=== PATIENT | female | born 1945 | race Caucasian/White ===

== ENCOUNTER 2019-11-06 13:16 | Emergency (ER) | payer MEDICARE, OTHER ==
--- NOTE | 2019-11-06 14:15 | EDM.PDOC ---
ED HPI GENERAL MEDICAL PROBLEM - General Stated Complaint: DIZZY Time Seen by Provider: 11/06/19 13:55 Source of Information: Reports: Patient History Limitations: Reports: No Limitations - History of Present Illness INITIAL COMMENTS - FREE TEXT/NARRATIVE: This 74 yo female patient reports to the ED with a right sided headache, intermittent dizziness and intermittent double vision. The patient reports she has had 3 similar episodes today. The patient reports her symptoms start with dizziness and double vision which ends with a right sided headache. The patient also reports she had several episodes of pain shooting down the right side of her neck and into her right shoulder. The patient reports she has been feeling "listless" and low energy over the weekend. The patient reports she has had similar episodes in the past (1 month ago). The patient reports she was seen in the [facility] and had numerous tests (cardiac and a head scan). At the conclusion of that visit, the patient was given Meclizine. The patient reports she took an ibuprofen (200 mg) at about noon for her headache with no resolution of her headache. The patient reports she currently has a right sided headache, but her dizziness and double vision is currently not present. Onset: Today Duration: Intermittent Location: Reports: Head (right sided headache), Face (double visitoin), Neck (right sided neck pain (gone at time of examination)), Upper Extremity, Right (shoulder ache (gone at time of examination)) Quality: Reports: Ache, Dull Severity: Moderate Improves with: Reports: None Worsens with: Reports: None Context: Reports: Other Associated Symptoms: Reports: Headaches Treatments [employer]: Reports: NSAIDS - Related Data Allergies Allergy/AdvReac Type Severity Reaction Status Date / Time nortriptyline Allergy Intermediate Rash Verified 11/06/19 13:42 pentosan polysulfate sodium Allergy Mild Other Verified 11/06/19 13:43 adhesive tape Allergy red Verified 11/06/19 13:46 amitriptyline Allergy Rash Verified 11/06/19 13:42 hydrocortisone Allergy Rash Verified 11/06/19 13:48 latex Allergy Rash Verified 11/06/19 13:44 neomycin Allergy Other Verified 11/06/19 13:47 polymyxin B Allergy Rash Verified 11/06/19 13:47 pravastatin Allergy Rash Verified 11/06/19 13:45 prednisone Allergy Rash Verified 11/06/19 13:44 Tricyclic Compounds Allergy Other Verified 11/06/19 13:46 Home Meds: Home Meds Calcium Carbonate/Vitamin D3 [Calcium 600 + Vit D Tablet] 1 cap PO ACBREAKFAST 11/06/19 [History] Celecoxib 200 mg PO 11/06/19 [History] Ibuprofen [Advil] 200 mg PO PRN 11/06/19 [History] Levothyroxine Sodium [Synthroid] 125 mcg PO DAILY 11/06/19 [History] Meclizine [Antivert] 12.5 mg PO TID 11/06/19 [History] Omeprazole 20 mg PO 11/06/19 [History] lisinopriL [Lisinopril] 10 mg PO 11/06/19 [History] ED ROS GENERAL - Review of Systems Review Of Systems: Comprehensive ROS is negative, except as noted in HPI. ED EXAM, GENERAL - Physical Exam Exam: See Below Exam Limited By: No Limitations General Appearance: Alert, WD/WN, Mild Distress Eye Exam: Bilateral Eye: EOMI, Normal Inspection, PERRL Ears: Normal External Exam, Normal Canal, Hearing Grossly Normal, Normal TMs Nose: Normal Inspection, Normal Mucosa, No Blood Throat/Mouth: Normal Inspection, Normal Lips, Normal Teeth, Normal Gums, Normal Oropharynx, Normal Voice, No Airway Compromise Head: Atraumatic, Normocephalic Neck: Normal Inspection, Supple, Non-Tender, Full Range of Motion Respiratory/Chest: No Respiratory Distress, Lungs Clear, Normal Breath Sounds, No Accessory Muscle Use, Chest Non-Tender Cardiovascular: Normal Peripheral Pulses, Regular Rate, Rhythm, No Edema, No Gallop, No JVD, No Murmur, No Rub GI/Abdominal: Normal Bowel Sounds, Soft, Non-Tender, No Organomegaly, No Distention, No Abnormal Bruit, No Mass (Female) Exam: Deferred Rectal (Female) Exam: Deferred Back Exam: Normal Inspection, Full Range of Motion, NT Extremities: Normal Inspection, Normal Range of Motion, Non-Tender, No Pedal Edema, Normal Capillary Refill Neurological: Alert, Oriented, CN II-XII Intact, Normal Cognition, Normal Reflexes, No Motor/Sensory Deficits Psychiatric: Normal Affect, Normal Mood Skin Exam: Warm, Dry, Intact, Normal Color, No Rash Lymphatic: No Adenopathy Course - Vital Signs Last Recorded V/S: Last Vital Signs Temp 36.9 C 11/06/19 13:34 Pulse 78 11/06/19 13:34 Resp 17 11/06/19 13:34 BP 138/73 11/06/19 13:34 Pulse Ox 96 11/06/19 13:34 - Orders/Labs/Meds Orders: Active Orders 24 hr Category Date Time Status EKG Documentation Completion [RC] STAT Care 11/06/19 14:03 Ordered Labs: Laboratory Tests 11/06/19 11/06/19 Range/Units 14:16 14:16 WBC 5.0 (5.0-10.0) 10^3/uL RBC 4.38 (4.2-5.4) 10^6/uL Hgb 13.9 (12.0-16.0) g/dL Hct 41.7 (37.0-47.0) % MCV 95.2 (80-100) fL MCH 31.7 (27.0-34.0) pg MCHC 33.3 (33.0-35.0) g/dL Plt Count 176 (150-450) 10^3/uL Neut % (Auto) 62.4 (42.2-75.2) % Lymph % (Auto) 24.9 (20.5-50.1) % [place] % (Auto) 8.5 H (2-8) % Eos % (Auto) 3.6 H (1.0-3.0) % Baso % (Auto) 0.6 (0.0-1.0) % Sodium 140 (136-145) mmol/L Potassium 3.6 (3.5-5.1) mmol/L Chloride 105 (98-107) mmol/L Carbon Dioxide 28 (21-32) mmol/L Anion Gap 10.6 (7-13) mEq/L BUN 14 (7-18) mg/dL Creatinine 0.83 (0.55-1.02) mg/dL Est Cr Clr Drug Dosing 53.51 mL/min Estimated GFR (MDRD) > 60 BUN/Creatinine Ratio 16.9 (No establ ref range) Glucose 80 (74-99) mg/dL Calcium 8.7 (8.5-10.1) mg/dL Total Bilirubin 0.8 (0.2-1.0) mg/dL AST 18 (15-37) U/L ALT 22 (14-59) U/L Alkaline Phosphatase 54 (46-116) U/L Troponin I < 0.017 (0.000-0.056) ng/mL Total Protein 7.1 (6.4-8.2) g/dL Albumin 3.7 (3.4-5.0) g/dL Globulin 3.4 Albumin/Globulin Ratio 1.1 Meds: Medications Discontinued Medications Generic Name Dose Route Start Last Admin Trade Name Glenna PRN Reason Stop Dose Admin Acetaminophen 650 mg 11/06/19 15:43 11/06/19 15:49 Tylenol PO 11/06/19 15:44 650 mg NOW ONE Administration Departure - Departure Time of Disposition: 16:49 Disposition: Home, Self-Care 01 Condition: Fair Clinical Impression: Migraine headache Qualifiers: Migraine type: unspecified Status migrainosus presence: without status migrainosus Intractability: not intractable Qualified Code(s): G43.909 - Migraine, unspecified, not intractable, without status migrainosus - Discharge Information *PRESCRIPTION DRUG MONITORING PROGRAM REVIEWED*: Not Applicable *COPY OF PRESCRIPTION DRUG MONITORING REPORT IN PATIENT DARRIN: Not Applicable Instructions: Migraine Headache, [id number] Forms: ED Department Discharge Care Plan Goals: The patient was advised of the examination, lab, EKG, x-ray and CT results during the visit. The patient was given Tylenol while in the ED with resolution of her headache. The patient was encouraged to follow-up with her primary care facility for continued evaluation and further management. If the patient has any additional symptoms or concerns, the patient should either return to the emergency department or visit her primary care facility. Sepsis Event Note (ED) - Evaluation Sepsis Screening Result: No Definite Risk - Focused Exam Vital Signs: Vital Signs Temp Pulse Resp BP Pulse Ox 11/06/19 13:34 36.9 C 78 17 138/73 96 - My Orders Last 24 Hours: My Active Orders 11/06/19 14:03 EKG Documentation Completion [RC] STAT - Assessment/Plan Last 24 Hours: My Active Orders 11/06/19 14:03 EKG Documentation Completion [RC] STAT
[2019-11-06 14:45] LABS: ANION GAP 10.6 mEq/L (7-13); CHLORIDE,CL 105 mmol/L (98-107); SODIUM,NA 140 mmol/L (136-145)
--- NOTE | 2019-11-06 15:27 | CT ---
EXAMINATION: Head wo Cont SEX: Female AGE: 74 years CLINICAL HISTORY: 74-year-old female complaining of "dizziness". Scan technique: Volume acquisition of data emergency unenhanced CT scan of the head and brain obtained with the patient lying supine on the Siemens multislice scanner [place], [place]. All data archived in the PACS system for storage, reformatting axial/sagittal/coronal planes and study (bone/brain windows). No comparison films immediately available. Interpretation: 1. Uniformly thick bony calvarium. No sign of skull fracture, underlying brain contusion, or epidural/subdural hematoma. 2. No supratentorial or posterior fossa mass lesion. No hydrocephalus. 3. Physiologic midline pineal and symmetric choroid plexus calcifications. 4. Asymmetric isolated lacunar infarct thalamus on the right. No surrounding edema or associated mass effect. No other ischemic infarcts and no sign of acute intracerebral, intraventricular or subarachnoid bleed. 5. Cerebellum and brainstem unremarkable. 6. Symmetric clear pneumatization of the paranasal and mastoid sinuses. 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 No sign of intracranial mass, hydrocephalus or acute bleed.
--- NOTE | 2019-11-06 15:34 | CR ---
EXAMINATION: Chest 1V Frontal SEX: Female AGE: 74 years CLINICAL HISTORY: 74-year-old female experiencing DIZZINESS. No comparison films at this institution. Interpretation: Dorsolumbar scoliosis. Normal cardiac silhouette and pulmonary vascularity. No vascular congestion, cephalization of flow, alveolar edema or dependent pleural effusion. No lung mass, hilar lymphadenopathy or focal lobar pneumonia. No atelectasis/collapse. No pneumothorax or pneumomediastinum. Midline tracheal bronchial airway unremarkable. CONCLUSION: No cardiopulmonary abnormality. Scoliosis.
[2019-11-06] MEDS ORDERED: Acetaminophen 325 MG Tab PO ONE (15:43)
== END 2019-11-06 15:15 | disposition home or self-care (01) ==
LOC: DL.ED 13:16
DX: G43.909 Migraine, unspecified, not intractable, without status migrainosus (principal); Z91.048 Other nonmedicinal substance allergy status; Z88.8 Allergy status to other drugs, medicaments and biological substances; Z91.040 Latex allergy status; Z88.1 Allergy status to other antibiotic agents; Z79.899 Other long term (current) drug therapy
CPT/HCPCS: 36415; 70450; 71045; 80053; 84484; 85025; 93005; 99284; A9270

== ENCOUNTER 2023-03-07 09:13 | Day surgery (SDC) | payer MEDICARE, OTHER ==
[2023-03-07] MEDS ORDERED: Cataract Ophth Solution EYERT ONE (09:45)
[2023-03-07] MEDS ORDERED: Povidone-Iodine 5% Sterile Ophth Soln 30 ML Bottle EYERT ONE ×2 (09:45→11:08)
[2023-03-07] MEDS ORDERED: Acetaminophen 325 MG Tab PO PRN (09:45)
[2023-03-07] MEDS ORDERED: Timolol Maleate 0.5% Ophth Soln 5 ML Bottle EYERT ONE (09:45)
[2023-03-07] MEDS ORDERED: Proparacaine 0.5% Ophth Soln 15 ML Bottle EYERT ONE ×2 (09:45→11:07)
[2023-03-07] MEDS ORDERED: Ondansetron 4 MG/2 ML SDV IVPUSH PRN (09:45)
[2023-03-07] MEDS ORDERED: Tropicamide 1% Ophth Soln 15 ML Bottle EYERT ONE (09:45)
[2023-03-07] MEDS ORDERED: Moxifloxacin 0.5% Ophth Soln 3 ML Bottle EYERT ONE (09:45)
[2023-03-07] MEDS ORDERED: Acetaminophen/Codeine 300-30 MG Tab PO PRN (09:45)
[2023-03-07] MEDS ORDERED: Phenylephrine 10% Ophth Soln 5 ML Bot EYERT PRN (09:45)
[2023-03-07] MEDS ORDERED: Sodium Chloride 0.9% 10 ML Syringe FLUSH PRN (09:45)
[2023-03-07] MEDS ORDERED: Tobramycin 0.3% Ophth Oint 3.5 GM Tube EYERT ONE (11:08)
[2023-03-07] MEDS ORDERED: Diclofenac Sodium 0.1% Ophth Soln 5 ML Bottle EYERT ONE (11:08)
[2023-03-07] MEDS ORDERED: Apraclonidine 0.5% Ophth Soln 5 ML Bot EYERT ONE (11:08)
[2023-03-07] MEDS ORDERED: Vancomycin 500 MG SDV EYERT ONE (11:09)
[2023-03-07] MEDS ORDERED: Balanced Salt Solution Ophth Irrig 500 ML Bottle IOCULAR ONE (11:09)
[2023-03-07] MEDS ORDERED: Lidocaine 1% 30 ML SDV ONE (11:09)
[2023-03-07] MEDS ORDERED: Chondroitin Sulfate/Hyaluronate Sodium Ophth Inj 0.75 ML Syringe EYERT ONE (11:10)
== END 2023-03-07 12:00 | disposition home or self-care (01) ==
LOC: DL.SDS 09:13
PROVIDERS: ATTEND Ophthalmology
DX: H25.811 Combined forms of age-related cataract, right eye (principal); I10 Essential (primary) hypertension; I25.10 Atherosclerotic heart disease of native coronary artery without angina pectoris; E78.5 Hyperlipidemia, unspecified; K21.9 Gastro-esophageal reflux disease without esophagitis; I49.5 Sick sinus syndrome; K58.9 Irritable bowel syndrome, unspecified; E03.9 Hypothyroidism, unspecified; Z79.899 Other long term (current) drug therapy; Z95.0 Presence of cardiac pacemaker; Z79.890 Hormone replacement therapy; Z88.1 Allergy status to other antibiotic agents; Z88.8 Allergy status to other drugs, medicaments and biological substances; Z91.040 Latex allergy status
CPT/HCPCS: A9270-GY; J3370; J3490